=== PATIENT | female | born 1985 | race African-American/Black ===

== ENCOUNTER 2022-12-22 21:37 | Emergency (ER) | payer MEDICAID, OTHER ==
[~2022-12-22] VITALS: Ht 162.6 cm; Wt 78.0 kg
[2022-12-22] MEDS ORDERED: LEVETIRACETAM 1000MG PREMIX 100 ML IV ONE (22:00)
[2022-12-22 23:23] LABS: CHLORIDE 108 mEq/L (98-107)
[2022-12-22 23:24] LABS: CLARITY URINE CLEAR (CLEAR); COLOR URINE YELLOW (YELLOW); KETONES URINE NEGATIVE (NEGATIVE); LEUKOCYTE ESTERASE URINE NEGATIVE (NEGATIVE); NITRITE URINE NEGATIVE (NEGATIVE); OCCULT BLOOD URINE NEGATIVE (NEGATIVE); PH URINE 5.5 (4.5-8.0); PROTEIN URINE NEGATIVE (NEGATIVE); SPECIFIC GRAVITY URINE 1.016 (1.005-1.030); UROBILINOGEN URINE 0.2 E.U./dL (0.2-1.0)
[2022-12-22 23:27] LABS: BASOPHILS % 0.3 % (0.0-2.0); EOSINOPHILS % 0.3 % (0.0-5.0); HEMATOCRIT. 43.1 % (36.0-48.0); HEMOGLOBIN. 13.6 g/dL (12.0-16.0); LYMPHOCYTES % 11.7 % (20.0-50.0); MEAN CORPUSCULAR HEMOGLOBIN 26.5 pg (28.0-32.0); MEAN PLATELET VOLUME 9.9 fl (7.4-10.4); MONOCYTES % 7.3 % (2.0-8.0); NEUTROPHILS % 80.4 % (40.0-76.0); PLATELET 266 x1000/uL (130-400); RED BLOOD CELL COUNT 5.13 mill/uL (4.2-5.4); RED CELL DISTRIBUTION WIDTH 15.2 % (11.6-14.6)
[2022-12-22 23:31] LABS: CREATINE KINASE 46 IU/L (26-192); ETHANOL BLOOD < 10 mg/dL
[2022-12-22 23:37] LABS: *AMPHETAMINES SCREEN URINE NEGATIVE (NEGATIVE); *BARBITURATES SCREEN URINE NEGATIVE (NEGATIVE); *BENZODIAZEPINES SCREEN URINE NEGATIVE (NEGATIVE); *COCAINE SCREEN URINE NEGATIVE (NEGATIVE); CANNABINOID URINE SCREEN NEGATIVE (NEGATIVE); METHADONE URINE SCREEN NEGATIVE (NEGATIVE); OPIATES URINE SCREEN NEGATIVE (NEGATIVE); PHENCYCLIDINE URINE SCREEN NEGATIVE (NEGATIVE)
[2022-12-22 23:53] LABS: HCG SCREEN NEGATIVE
[2022-12-23] MEDS ORDERED: ACETAMINOPHEN 325MG TABLET PO ONE (01:15)
[2022-12-23] MEDS ORDERED: POTASSIUM CHLORIDE 20MEQ TABLET SR PO ONE (01:45)
[2022-12-23 02:40] VITALS: BP 136/88
== END 2022-12-23 02:56 | disposition home or self-care (01) ==
LOC: ER 21:37
DX: R56.9 Unspecified convulsions (principal); I10 Essential (primary) hypertension; E11.9 Type 2 diabetes mellitus without complications; J45.909 Unspecified asthma, uncomplicated; Z86.59 Personal history of other mental and behavioral disorders
CPT/HCPCS: 36415; 70450; 80053; 80305; 80320; 81003; 82140; 82550; 82962; 84703; 85025; 93005; 96365; 99291; J1953; Z7610; G0480

== ENCOUNTER 2024-11-05 00:46 | Emergency (ER) | payer OTHER ==
[~2024-11-05] VITALS: Ht 167.6 cm; Wt 70.0 kg
[~2024-11-05 00:46] MED LIST: AMLO10TA80; ASPI-1406 PO; DOXY100C5; GABA800T97 PO; LEVE500T19; LOSA50TA41; OMEP40CA20; RIBO100T9; TRAM50TA3 PO
[2024-11-05 00:51] VITALS: BP 134/71; TEMP 36.8; O2SAT 100
[2024-11-05 00:52] VITALS: PULSE 77; RESP 18; O2SAT 99
[2024-11-05 03:04] LABS: BASOPHILS % 0.4 % (0.0-2.0); EOSINOPHILS % 1.7 % (0.0-5.0); LYMPHOCYTES % 14.7 % (20.0-50.0); MEAN CORPUSCULAR HEMOGLOBIN 28.5 pg (28.0-32.0); MEAN CORPUSCULAR HGB CONC 33.3 g/dL (31.0-37.0); MEAN CORPUSCULAR VOLUME 85.6 fL (81.0-99.0); MEAN PLATELET VOLUME 9.1 fl (7.4-10.4); MONOCYTES % 9.3 % (2.0-8.0); NEUTROPHILS % 73.9 % (40.0-76.0); PLATELET 247 x1000/uL (130-400); RED BLOOD CELL COUNT 4.56 mill/uL (4.2-5.4); RED CELL DISTRIBUTION WIDTH 14.5 % (11.6-14.6); WHITE BLOOD COUNT 12.9 x1000/uL (4.5-11.0)
[2024-11-05 03:12] LABS: CHLORIDE 106 mEq/L (98-107); POTASSIUM 3.3 mEq/L (3.5-5.1); SODIUM 142 mEq/L (136-145)
[2024-11-05 03:13] LABS: CALCIUM 8.8 mg/dL (8.7-10.4); CARBON DIOXIDE 27 mEq/L (21-32)
[2024-11-05 03:17] LABS: INR 0.9; PARTIAL THROMBOPLASTIN TIME 27.9 sec (23.4-31.0); PROTHROMBIN TIME 9.8 sec (9.6-11.0)
[2024-11-05 03:18] LABS: CREATININE 0.7 mg/dL (0.6-1.0); GLUCOSE 102 mg/dL (70-105); UREA NITROGEN BLOOD 14 mg/dL (9-23)
[2024-11-05 03:20] LABS: CLARITY URINE CLEAR (CLEAR); COLOR URINE DARK YELLOW (YELLOW); GLUCOSE URINE NEGATIVE (NEGATIVE); KETONES URINE NEGATIVE (NEGATIVE); LEUKOCYTE ESTERASE URINE 2+ (NEGATIVE); NITRITE URINE POSITIVE (NEGATIVE); OCCULT BLOOD URINE NEGATIVE (NEGATIVE); PROTEIN URINE NEGATIVE (NEGATIVE); SPECIFIC GRAVITY URINE 1.009 (1.005-1.030)
[2024-11-05 03:28] LABS: *AMPHETAMINES SCREEN URINE NEGATIVE (NEGATIVE); *BARBITURATES SCREEN URINE NEGATIVE (NEGATIVE); *BENZODIAZEPINES SCREEN URINE NEGATIVE (NEGATIVE); *COCAINE SCREEN URINE NEGATIVE (NEGATIVE); CANNABINOID URINE SCREEN NEGATIVE (NEGATIVE); ECSTASY MDMA SCREEN URINE NEGATIVE (NEGATIVE); METHADONE URINE SCREEN NEGATIVE (NEGATIVE); OPIATES URINE SCREEN NEGATIVE (NEGATIVE); PHENCYCLIDINE URINE SCREEN NEGATIVE (NEGATIVE)
[2024-11-05 03:38] LABS: ETHANOL BLOOD < 10 mg/dL (<10); TROPONIN I HIGH SENSITIVITY < 4 ng/L (3.0-34)
[2024-11-05 03:41] LABS: HCG SCREEN NEGATIVE
[2024-11-05 03:45] LABS: SQUAMOUS EPITHELIAL CELL URINE FEW /lpf (RARE/1+)
[2024-11-05 03:52] LABS: RBC URINE NONE SEEN /hpf (0-2)
[2024-11-05 03:54] LABS: BACTERIA URINE TRACE
[2024-11-05] MEDS: SODIUM CHLORIDE 0.9% 1,000 ML IV ONE (04:06)
[2024-11-05] MEDS: CEFTRIAXONE 2GM/50ML 50 ML IV NR (04:07)
[2024-11-05] MEDS: POTASSIUM CHLORIDE 20MEQ/PACKET PO NR (04:07)
[2024-11-05] MEDS: ACETAMINOPHEN 325MG TABLET PO NR (04:08)
[2024-11-05] MEDS ORDERED: ACET-2708 MT (05:04)
[2024-11-05] MEDS ORDERED: CEPH500C2 MT (05:04)
== END 2024-11-05 05:30 | disposition home or self-care (01) ==
LOC: ER 00:46
DX: R07.89 Other chest pain (principal); E87.6 Hypokalemia; N39.0 Urinary tract infection, site not specified; J45.909 Unspecified asthma, uncomplicated; I10 Essential (primary) hypertension; E11.9 Type 2 diabetes mellitus without complications; Z79.899 Other long term (current) drug therapy; Z86.73 Personal history of transient ischemic attack (TIA), and cerebral infarction without residual deficits
CPT/HCPCS: 80305; 80048; 81003; 80320; 84703; 83880; 83605; 85025; 85610; 85730; 87040; 84484; 36415; 84145; 71045; 93005; 96365; 99285; J0696; Z7610 ×2; G0480

== ENCOUNTER 2025-04-22 15:04 | Inpatient (IN) | payer MEDICAID ==
[~2025-04-22] VITALS: Ht 162.6 cm; Wt 90.7 kg
[~2025-04-22 15:04] MED LIST changes: -AMLO10TA80; -DOXY100C5; -LEVE500T19; +LEVE500T19 PO; -OMEP40CA20; -RIBO100T9
[2025-04-22 15:16] VITALS: O2SAT 100
[2025-04-22 16:00] LABS: BASOPHILS % 0.8 % (0.0-2.0); EOSINOPHILS % 1.6 % (0.0-5.0); HEMATOCRIT. 37.8 % (36.0-48.0); HEMOGLOBIN. 12.6 g/dL (12.0-16.0); LYMPHOCYTES % 17.0 % (20.0-50.0); MEAN PLATELET VOLUME 9.1 fl (7.4-10.4); MONOCYTES % 9.6 % (2.0-8.0); NEUTROPHILS % 71.0 % (40.0-76.0); PLATELET 274 x1000/uL (130-400); RED BLOOD CELL COUNT 4.52 mill/uL (4.2-5.4); RED CELL DISTRIBUTION WIDTH 14.1 % (11.6-14.6)
[2025-04-22 16:10] LABS: CREATININE 0.7 mg/dL (0.6-1.0); INR 1.1; UREA NITROGEN BLOOD 6 mg/dL (9-23)
[2025-04-22 16:11] LABS: ETHANOL BLOOD < 10 mg/dL (<10)
[2025-04-22 16:12] LABS: ASPARTATE AMINOTRANSFERASE 20 IU/L (<34); BILIRUBIN DIRECT < 0.1 mg/dL (<=3.0)
[2025-04-22 16:13] LABS: BILIRUBIN TOTAL 0.4 mg/dL (0.1-1.0); PROTEIN TOTAL 7.2 g/dL (6.0-8.3)
[2025-04-22 16:24] LABS: HCG SCREEN NEGATIVE
[2025-04-22] MEDS: KETOROLAC 15MG/ML VIAL IV ONE (16:37)
[2025-04-22] MEDS: LORAZEPAM 2MG/ML UD SYRINGE IV SCH (16:38)
[2025-04-22] MEDS ORDERED: ACETAMINOPHEN 325MG TABLET PO PRN (19:00)
[2025-04-22] MEDS ORDERED: MAGNESIUM/ALUMINUM HYDROXIDE/SIMETHICONE 30ML UDC PO PRN (19:00)
[2025-04-22] MEDS ORDERED: CLONIDINE 0.1MG TABLET PO PRN (19:00)
[2025-04-22] MEDS ORDERED: ZOLPIDEM TARTRATE 5MG TABLET PO PRN (19:00)
[2025-04-22] MEDS ORDERED: NALOXONE HCL 0.4MG/ML VIAL IV PRN (19:00)
[2025-04-22] MEDS ORDERED: LORAZEPAM 2MG/ML UD SYRINGE IV PRN ×2 (19:00)
[2025-04-22] MEDS: SODIUM CHLORIDE 0.9% 1,000 ML IV SCH (19:10)
[2025-04-22 19:30] VITALS: BP 145/94; PULSE 82; RESP 19; TEMP 36.696; TEMP 36.7; O2SAT 98
[2025-04-22] MEDS: ENOXAPARIN 30MG/0.3ML SYR SUBCUT SCH (21:00)
[2025-04-22] MEDS: LEVETIRACETAM 500MG TABLET PO SCH (21:00)
[2025-04-22] MEDS: GABAPENTIN 300MG CAPSULE PO SCH (21:00)
[2025-04-22] MEDS: HYDROCODONE/ACETAMINOPHEN 5/325MG TABLET PO PRN (22:56)
[2025-04-23 08:00] VITALS: BP 138/89; PULSE 74; RESP 14; O2SAT 99
[2025-04-23] MEDS: ASPIRIN 81MG EC TABLET PO SCH (09:07)
[2025-04-23] MEDS: PANTOPRAZOLE SODIUM 40 MG/VIAL IV SCH (09:07)
[2025-04-23] MEDS: LOSARTAN 50 MG TABLET PO SCH (09:08)
[2025-04-23 12:00] VITALS: BP 137/81; PULSE 89; RESP 18; TEMP 36.6; O2SAT 100
[2025-04-23 16:00] VITALS: BP 126/85; PULSE 95; RESP 16; TEMP 36.7; O2SAT 98
[2025-04-23 20:00] VITALS: BP 121/79; PULSE 92; RESP 19; TEMP 36.6; O2SAT 98
[2025-04-23 22:27] LABS: BASOPHILS % 0.5 % (0.0-2.0); EOSINOPHILS % 3.1 % (0.0-5.0); HEMATOCRIT. 35.8 % (36.0-48.0); HEMOGLOBIN. 11.7 g/dL (12.0-16.0); LYMPHOCYTES % 25.0 % (20.0-50.0); MEAN PLATELET VOLUME 9.5 fl (7.4-10.4); MONOCYTES % 9.3 % (2.0-8.0); NEUTROPHILS % 62.1 % (40.0-76.0); PLATELET 270 x1000/uL (130-400); RED BLOOD CELL COUNT 4.22 mill/uL (4.2-5.4); RED CELL DISTRIBUTION WIDTH 14.1 % (11.6-14.6)
[2025-04-23 22:46] LABS: CREATININE 1.0 mg/dL (0.6-1.0); UREA NITROGEN BLOOD 8 mg/dL (9-23)
[2025-04-24 00:23] VITALS: BP 128/82; PULSE 86; RESP 17; TEMP 36.7; O2SAT 99
[2025-04-24 04:04] VITALS: BP 132/76; PULSE 94; RESP 18; TEMP 36.5; O2SAT 98
[2025-04-24 06:20] LABS: BASOPHILS % 0.7 % (0.0-2.0); EOSINOPHILS % 3.2 % (0.0-5.0); HEMATOCRIT. 35.0 % (36.0-48.0); HEMOGLOBIN. 11.7 g/dL (12.0-16.0); LYMPHOCYTES % 26.0 % (20.0-50.0); MEAN PLATELET VOLUME 9.4 fl (7.4-10.4); MONOCYTES % 8.6 % (2.0-8.0); NEUTROPHILS % 61.5 % (40.0-76.0); PLATELET 242 x1000/uL (130-400); RED BLOOD CELL COUNT 4.19 mill/uL (4.2-5.4); RED CELL DISTRIBUTION WIDTH 14.3 % (11.6-14.6)
[2025-04-24 06:39] LABS: CREATININE 0.8 mg/dL (0.6-1.0); UREA NITROGEN BLOOD 9 mg/dL (9-23)
[2025-04-24 07:54] VITALS: BP 134/64; PULSE 74; RESP 18; TEMP 36.8; O2SAT 93
[2025-04-24] MEDS: ONDANSETRON HCL 4MG/2ML INJ IV PRN (11:07)
[2025-04-24] MEDS: POTASSIUM CHLORIDE 20MEQ TABLET SR PO NR (11:41)
[2025-04-24 12:00] VITALS: BP 152/102; PULSE 81; RESP 18; TEMP 36.4; O2SAT 96
[2025-04-24] MEDS ORDERED: LEVE500T19 PO (12:26)
[2025-04-24] MEDS ORDERED: LOSA50TA41 PO (12:26)
[2025-04-24] MEDS ORDERED: GABA800T97 PO (12:26)
[2025-04-24] MEDS ORDERED: ASPI-1406 PO (12:26)
[2025-04-24 13:24] VITALS: BP 152/102; PULSE 81; RESP 18; TEMP 98.2
== END 2025-04-24 14:10 | disposition home or self-care (01) | DRG 53 ==
LOC: ER 15:04 → 7WST 17:56 → EDBEDREQ 18:15 → EDBEDREQTM 18:15 → ENRESERV 19:02 → 7WST 04-23 06:54
PROVIDERS: ADMIT Internal Medicine; ATTEND Internal Medicine
DX: G40.909 Epilepsy, unspecified, not intractable, without status epilepticus (principal); E11.9 Type 2 diabetes mellitus without complications; I10 Essential (primary) hypertension; Z91.148 Patient's other noncompliance with medication regimen for other reason; Z86.73 Personal history of transient ischemic attack (TIA), and cerebral infarction without residual deficits; J45.909 Unspecified asthma, uncomplicated; T42.6X6A Underdosing of other antiepileptic and sedative-hypnotic drugs, initial encounter; Y92.89 Other specified places as the place of occurrence of the external cause
CPT/HCPCS: 36415; 71045; 80048; 80076; 80320; 82542; 83735; 84443; 84703; 85025; 93005; 93970; 96374; 96375; 99285; J1650; J1885; J2060; J2405; J2470; G0480